=== PATIENT | female | born 1995 | race Caucasian/White ===

== ENCOUNTER 2021-12-22 20:08 | Emergency (ER) | payer MEDICAID ==
[~2021-12-22] VITALS: Ht 160 cm; Wt 54.4 kg
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
--- NOTE | 2021-12-22 20:35 | NUR ---
US TECH AT BED SIDE
--- NOTE | 2021-12-22 21:59 | NUR ---
PT IS MEDICALLY STABLE FOR D/C PER MD. Patient discharged to home in stable condition. Written and verbal after care instructions given. Patient verbalizes understanding of instruction.
[2021-12-22 22:01] VITALS: BP 121/68
== END 2021-12-22 22:04 | disposition home or self-care (01) ==
LOC: ER 20:17
DX: O26.891 Other specified pregnancy related conditions, first trimester (principal); R10.84 Generalized abdominal pain; Z3A.12 12 weeks gestation of pregnancy
CPT/HCPCS: 76856-TC